=== PATIENT | male | born 1965 | race Caucasian/White ===

== ENCOUNTER → 2017-09-05 | Outpatient (CLI) | payer BC | END | disposition home or self-care (01) | LOC: KCIC MRI 07:43 | DX: S83.242A Other tear of medial meniscus, current injury, left knee, initial encounter (principal); Z13.5 Encounter for screening for eye and ear disorders; M17.12 Unilateral primary osteoarthritis, left knee; M94.262 Chondromalacia, left knee; X58.XXXA Exposure to other specified factors, initial encounter; Y93.89 Activity, other specified; Y92.89 Other specified places as the place of occurrence of the external cause; Y99.8 Other external cause status | CPT/HCPCS: 70030; 73721 ==

== ENCOUNTER → 2020-10-01 | Outpatient (CLI) | payer BC ==
--- NOTE | 2020-10-01 15:28 | CARD ---
MR#: [id number] Date of Study: 10/01/2020 Ordering Physician: ZHEN WINTERS, Referring Physician: ZHEN WINTERS, Tech: Edith Roes [facility] APPROVED REPORT EXAM: Two-dimensional and M-mode echocardiogram with Doppler and color Doppler. Other Information Quality : AverageHR: 65bpm Rhythm : NSR INDICATION Dyspnea RISK FACTORS Hypertension Obesity 2D DIMENSIONS RVDd3.3 (2.9-3.5cm)Left Atrium(2D)3.6 (1.6-4.0cm) IVSd1.2 (0.7-1.1cm)Aortic Root(2D)3.1 (2.0-3.7cm) LVDd4.2 (3.9-5.9cm)LVOT Diameter2.3 (1.8-2.4cm) PWd1.2 (0.7-1.1cm)LVDs2.2 (2.5-4.0cm) FS (%) 47.0 %SV63.1 ml LVEF(%)78.8 (>50%) Aortic Valve AoV Peak Asim.113.8cm/sAoV VTI23.7cm AO Peak GR.5.2mmHgLVOT Peak Asim.101.9cm/s AO Mean GR.2mmHgAVA (VMAX)3.70cm2 Mitral Valve MV E Ythwlbku51.5cm/sMV DECEL [id number] MV A Kpnkbgrn09.8cm/sE/A Ratio0.9 Pulmonary Valve PV Peak Nlspruip07.0cm/s Pulmonary Vein S1 Brljjbhe07.6cm/sD2 Ibuouhnx78.1cm/s PVa [id number] LEFT VENTRICLE The left ventricle is normal size. There is borderline to mild concentric left ventricular hypertroph y. The left ventricular systolic function is normal and the ejection fraction is within normal range. Estimated PAP 60-65%. There is normal LV segmental wall motion. Transmitral Doppler flow pattern is Grade I-abnormal relaxation pattern. RIGHT VENTRICLE The right ventricle is normal size. There is normal right ventricular wall thickness. The right ventr icular systolic function is normal. ATRIA The left atrium size is normal. The right atrium size is normal. The interatrial septum is intact wit h no evidence for an atrial septal defect or patent foramen ovale as noted on 2-D or Doppler imaging. AORTIC VALVE The aortic valve is normal in structure and function. Doppler and Color Flow revealed no significant aortic regurgitation. There is no significant aortic valvular stenosis. MITRAL VALVE The mitral valve is normal in structure and function. There is no evidence of mitral valve prolapse. There is no mitral valve stenosis. Doppler and Color Flow revealed no mitral valve regurgitation note d. TRICUSPID VALVE The tricuspid valve is normal in structure and function. Doppler and Color Flow revealed no tricuspid valve regurgitation noted. There is no tricuspid valve stenosis. PULMONIC VALVE Doppler and Color Flow revealed mild pulmonic valvular regurgitation. There is no pulmonic valvular s tenosis. GREAT VESSELS The aortic root is normal in size. The ascending aorta is normal in size. The IVC is normal in size a nd collapses >50% with inspiration. PERICARDIAL EFFUSION There is no evidence of significant pericardial effusion. Critical Notification Critical Value: No <Conclusion> The left ventricular systolic function is normal and the ejection fraction is within normal range. E stimated PAP 60-65%. There is normal LV segmental wall motion. Signed by : Zhen Winters, Electronically Approved : 10/01/2020 15:28:13
--- NOTE | 2020-10-01 16:59 | RAD ---
MR#: [id number] Date of Study: 10/01/2020 Ordering Physician: CESAR CHRISTOPHER, Referring Physician: TRACY KEMP Tech: RT Nabila (R) (N) APPROVED REPORT Test Type: Exercise Stress Nurse/Tech: Lory Stark R.N. Test Indications: exertional dyspnea/ cp Cardiac History: none Medications: none Medical History: none Resting ECG: SR Resting Heart Rate: 68 bpm Resting Blood Pressure: 135/77mmHg Pretest Chest Pain: No chest pain Nurse/Tech Notes lungs cta, heart tones regular Consent: The procedure was explained to the patient in lay terms. Informed consent was witnessed. Oren eout was entered into [employer]. History and Stress Test performed by RT Francois (R) (N) Stress Symptoms No chest pain or symptoms. POST EXERCISE Reason for Termination: Reached target heart rate Target HR: Yes Max HR: 146 bpm 89% of Maximum Predicted HR: 164 bpm Exercise duration: 8:30 min:sec, 3 Stage Exercise capacity: 10.0METs Max Blood Pressure: 149/86mmHg Blood Pressure response to exercise: Normal blood pressure response during stress. Heart Rate response to exercise: normal Chest Pain: No. Arrhythmia: Yes. PVC noted ST Change: No. INTERPRETATION Stress EKG Conclusion: No acute stress induced EKG changes. Imaging Protocol IMAGE PROTOCOL: Rest Tc-99m/stress Tc-99m 1 day Rest: Stress: Viability: Radiopharm.Tc99m OfusxzuctHa66n Sestamibi Dose10.3mCi 31.5mCi Duration 15min. 15min. Img Date 10/01/2020 10/01/2020 Inj-Img Anal98aga. 60min. Rest Admin Site:IV - Left AntecubitalAdministrator:RT Nabila (R)(N) Stress Admin Site: IV - Left AntecubitalAdministrator: RT Francois (R)(N) STRESS DATA End Diast. Vol.91.0mlAv. Heart Rate80.0bpm End Syst. Vol.15.0mlCO Index BSA0.0L/min Myocardial Pbzu420.0gEject. Jbgqbqrz06.0% Stress Rates Pk. Fill Rate3.56EDV/secLVtime Pk. Fill 216.93msec Pk. Empty Rate5.65ESV/secLVtime Pk. Kmume067.56msec 1/3 Pk. Fill1.57EDV/sec Stress Scores Regional WT2.00Summed WT5.00 Regional WM0.00Summed WM0.00 The rest and stress images show normal perfusion, normal contraction and thickening. LV Perf. Quant 17 Seg. SSS0.00 17 Seg. SRS0.00 17 Seg. SDS0.00 Stress Defect Extent (% LAD)0.00Rest Defect Extent (% LAD)0.00Rev. Defect Extent (% LAD)0.00 Stress Defect Extent (% LCX) 0.00Rest Defect Extent (% LCX)0.00Rev. Defect Extent (% LCX)0.00 Stress Defect Extent (% RCA)0.00Rest Defect Extent (% RCA)0.00Rev. Defect Extent (% RCA)0.00 Stress Defect Extent (% CHUNG)0.00Rest Defect Extent (% CHUNG)0.00Rev. Defect Extent (% CHUNG)0.00 Other Information Quality:Good Risk Assessment: Low Risk Conclusion 1. No evidence of EKG changes with stress testing. 2. Normal perfusion at stress/rest. 3. Low risk study. 4. EF > 60%. Signed by : Cesar Christopher, Electronically Approved : 10/01/2020 16:58:44
== END ==
LOC: ECHO 08:20
PROVIDERS: ATTEND Internal Medicine Cardiovascular Disease
DX: I37.1 Nonrheumatic pulmonary valve insufficiency (principal); I51.7 Cardiomegaly
CPT/HCPCS: 78452; 93017; 93306; A9500